=== PATIENT | female | born 1970 | race Caucasian/White ===

== ENCOUNTER 2016-04-11 14:18 | Emergency (ER) | payer MEDICAID ==
[~2016-04-11] VITALS: Ht 157.5 cm; Wt 71.5 kg
[2016-04-11 15:04] VITALS: Ht 157.5 cm; Wt 71.5 kg
--- NOTE | 2016-04-11 16:38 | ERD ---
ER Documentation Chief Complaint Date/Time DATE: 04/11/16 TIME: 16:35 Chief Complaint HAD A MECHANICAL GROUND LEVEL FALL, LEFT ARM IN [place] HPI 46-year-old female who presents to the emergency department today complaining of left arm pain after tripping and falling while running out of the house earlier today. Denies any previous trauma. Denies any fevers or chills. ROS All systems reviewed and are negative except as per history of present illness. Medications Home Meds Active Scripts Neomycin Jones/Bacitrac Zn/Poly (Triple Antibiotic Ointment) 1 Each Oint.pack, 1 EACH TP BID for 7 Days Prov:MARTHA RODRIGEZ PA-C 04/11/16 Naproxen* (Naprosyn*) 500 Mg Tablet, 500 MG PO BID Y for PAIN AND/OR INFLAMMATION, #30 TAB Prov:MARTHA RODRIGEZ PA-C 04/11/16 Hydrocodone/Acetaminophen ([place] 5-325 Tablet) 1 Each Tablet, 1 TAB PO Q6H Y for PAIN, #20 TAB Prov:MARTHA RODRIGEZ PA-C 04/11/16 Allergies Allergies: Coded Allergies: No Known Allergy (Unverified , 04/11/16) PMhx/Soc Medical and Surgical Hx: pt denies Medical Hx, pt denies Surgical Hx Physical Exam Vitals Vital Signs Date Time Temp Pulse Resp B/P Pulse Ox O2 Delivery O2 Flow Rate FiO2 04/11/16 15:04 98.5 94 18 137/79 98 Physical Exam Const: No acute distress Head: Atraumatic Eyes: Normal Conjunctiva ENT: Normal External Ears, Nose and Mouth. Neck: Full range of motion..~ No meningismus. Resp: Clear to auscultation bilaterally Cardio: Regular rate and rhythm, no murmurs Abd: Soft, non tender, non distended. Normal bowel sounds Skin: abrasion right knee. Back: No midline or flank tenderness MSk: Left arm with no obvious deformity. Elbow mild effusion. Tenderness to palpation elbow, forearm, wrist Unable to assess range of motion secondary to pain. Pulses 2+. Cap refill. Distal neurovascularly intact. No obvious deformity. No effusion. Abrasion noted. Neur: Awake and alert Psych: Normal Mood and Affect Results 24 hrs Current Medications Medications (Trade) Dose Ordered Sig/Mehrdad Route PRN Reason Start Time Stop Time Status Last Admin Dose Admin Acetaminophen/ Hydrocodone Bitart ([place] (5325)) 1 tab ONCE ONCE PO 04/11/16 17:00 04/11/16 17:01 DC 04/11/16 16:46 DIAGNOSTIC IMAGING REPORT Patient: JEFF SOTO : 1970 Age: 46 Sex: F MR #: [id number] DOS: 04/11/16 0000 Ordering MD: MARTHA RODRIGEZ PA-C Location: [facility] Room/Bed: PROCEDURE: XR Elbow. CLINICAL INDICATION: Trauma, left elbow pain TECHNIQUE: AP, lateral and oblique views of the left elbow performed. COMPARISON: None. FINDINGS: There is an acute mildly impacted radial head fracture involving about 50% of the articular surface and a large elbow joint effusion. Alignment is otherwise normal. There is no additional fracture. IMPRESSION: 1. Acute mildly impacted radial head fracture and large elbow joint effusion as above. RPTAT: UU .Marcus Herrera MD, MD Date Time Electronically viewed and signed by .Marcus Herrera MD, on 04/11/2016 17: 21 .K/ CC: MARTHA RODRIGEZ PA-C DIAGNOSTIC IMAGING REPORT Patient: JEFF SOTO : 1970 Age: 46 Sex: F MR #: [id number] DOS: 04/11/16 0000 Ordering MD: MARTHA RODRIGEZ PA-C Location: [facility] Room/Bed: PROCEDURE: XR Forearm. CLINICAL INDICATION: trauma, fall TECHNIQUE: AP and lateral views of the left forearm were obtained. COMPARISON: Radiographs of the left elbow performed same day FINDINGS: There is an acute mildly impacted radial head fracture involving about 50% of the articular surface and a large elbow joint effusion. Alignment is otherwise normal. There is no additional fracture. IMPRESSION: 1. Acute mildly impacted radial head fracture and large elbow joint effusion as above. RPTAT: UU .Marcus Herrera MD, MD Date Time Electronically viewed and signed by .Marcus Herrera MD, MD on 04/11/2016 17: 23 .K/ CC: MARTHA RODRIGEZ PA-C DIAGNOSTIC IMAGING REPORT Patient: JEFF SOTO : 1970 Age: 46 Sex: F MR #: [id number] DOS: 04/11/16 0000 Ordering MD: MARTHA RODRIGEZ PA-C Location: [facility] Room/Bed: PROCEDURE: XR Wrist. CLINICAL INDICATION: Left wrist pain TECHNIQUE: AP, lateral and oblique views of the left wrist were performed. COMPARISON: Radiographs of the left forearm performed same day FINDINGS: There is no acute fracture or dislocation. Alignment is normal. Joint spaces are preserved. Visualized soft tissues are grossly unremarkable. IMPRESSION: 1. No radiographic evidence of acute osseous abnormality of the left wrist. RPTAT: UU .Marcus Herrera MD, MD Date Time Electronically viewed and signed by .Marcus Herrera MD, MD on 04/11/2016 17: 22 .K/ CC: MARTHA RODRIGEZ PA-C Procedures/[facility] This 46-year-old female who presented to the emergency department today complaining of left arm pain after tripping and falling earlier today. Physical exam patient had significant amount of pain at her elbow forearm and wrist and therefore did not obtain imaging. Per the radiology report images of the elbow and forearm show an acute mildly impacted radial head fracture and large elbow joint effusion. There is no additional fracture. Images of the wrist are unremarkable. This is likely the source of the patient's pain and swelling. Patient will be placed in a splint. She was also placed a sling for comfort and given [place] here in the emergency department. She was distal neurovascularly intact pre-and post-splint application. She will be given a Prescription for a short course of [place] for home as well as Naprosyn. He was also given triple antibiotic ointment for her abrasion on her knee. Patient declined x-rays on her knee. At this time the patient is stable for discharge and outpatient management. Patient should follow up with their PCP in the next 1-2 days. Given her a list of referrals for local clinics as well as early childhood specialist as well as [facility]. They may return to the emergency department sooner for any persistent or worsening of symptoms. Patient understood and agreed with the plan. Discussed the case with Dr. Taveras and he is in agreement with the plan. Departure Diagnosis: Primary Impression: Radial head fracture Encounter type: initial encounter Fracture type: closed Fracture alignment : nondisplaced Laterality: left Qualified Code: S52.125A - Closed nondisplaced fracture of head of left radius, initial encounter Condition: Fair MARTHA RODRIGEZ PA-C Apr 11, 2016 16:37
[2016-04-11] MEDS ORDERED: HYDROCODONE/APAP (5/325) TAB PO ONE (17:00)
--- NOTE | 2016-04-11 17:22 | RADRPT ---
PROCEDURE: XR Elbow. CLINICAL INDICATION: Trauma, left elbow pain TECHNIQUE: AP, lateral and oblique views of the left elbow performed. COMPARISON: None. FINDINGS: There is an acute mildly impacted radial head fracture involving about 50% of the articular surface and a large elbow joint effusion. Alignment is otherwise normal. There is no additional fracture. IMPRESSION: 1. Acute mildly impacted radial head fracture and large elbow joint effusion as above. RPTAT: UU .Marcus Herrera MD, MD Date Time Electronically viewed and signed by .Marcus Herrera MD, MD on 04/11/2016 17:21 .K/
--- NOTE | 2016-04-11 17:22 | RADRPT ---
PROCEDURE: XR Wrist. CLINICAL INDICATION: Left wrist pain TECHNIQUE: AP, lateral and oblique views of the left wrist were performed. COMPARISON: Radiographs of the left forearm performed same day FINDINGS: There is no acute fracture or dislocation. Alignment is normal. Joint spaces are preserved. Visualized soft tissues are grossly unremarkable. IMPRESSION: 1. No radiographic evidence of acute osseous abnormality of the left wrist. RPTAT: UU .Marcus Herrera MD, MD Date Time Electronically viewed and signed by .Marcus Herrera MD, on 04/11/2016 17:22 .K/
--- NOTE | 2016-04-11 17:23 | RADRPT ---
PROCEDURE: XR Forearm. CLINICAL INDICATION: trauma, fall TECHNIQUE: AP and lateral views of the left forearm were obtained. COMPARISON: Radiographs of the left elbow performed same day FINDINGS: There is an acute mildly impacted radial head fracture involving about 50% of the articular surface and a large elbow joint effusion. Alignment is otherwise normal. There is no additional fracture. IMPRESSION: 1. Acute mildly impacted radial head fracture and large elbow joint effusion as above. RPTAT: UU .Marcus Herrera MD, MD Date Time Electronically viewed and signed by .Marcus Herrera MD, on 04/11/2016 17:23 .K/
[2016-04-11] MEDS ORDERED: HYDR-906 PO (17:41)
[2016-04-11] MEDS ORDERED: NAPR-260 PO (17:41)
[2016-04-11] MEDS ORDERED: NEOM1PAC TP (17:43)
[2016-04-11 18:00] VITALS: BP 132/72; PULSE 75; RESP 18; TEMP 98.5
== END 2016-04-11 18:00 | disposition home or self-care (01) ==
LOC: FTE 14:18
DX: S52.125A Nondisplaced fracture of head of left radius, initial encounter for closed fracture (principal); W01.0XXA Fall on same level from slipping, tripping and stumbling without subsequent striking against object, initial encounter; Y92.008 Other place in unspecified non-institutional (private) residence as the place of occurrence of the external cause
CPT/HCPCS: 29125; 73080; 73090; 73110; Z7502; Z7610